=== PATIENT | male | born 1965 | race Caucasian/White ===

== ENCOUNTER 2017-04-27 09:42 | Observation (INO) | payer MEDICARE, MEDICAID ==
[~2017-04-27] VITALS: Ht 177.8 cm; Wt 99.8 kg
[~2017-04-27 09:42] MED LIST: CARV25TA47 PO; CLON1TAB PO; DABI150C PO; HYDR-519 PO; LISINOPRIL PO; PRADAXA PO; TEMA30CA5 PO
[2017-04-27] MEDS ORDERED: MORPHINE SULFATE 4 MG/ML CPJ (NOT FOR IM USE) IV STA (09:57)
[2017-04-27] MEDS ORDERED: ONDANSETRON HCL 4MG/2ML VIAL IV STA (09:57)
[2017-04-27 10:17] LABS: BASOPHILS % 0.6 % (0.0-2.0); EOSINOPHILS % 1.1 % (0.0-5.0); HEMATOCRIT. 44.2 % (42.0-52.0); HEMOGLOBIN. 15.5 g/dL (14.0-18.0); LYMPHOCYTES % 28.3 % (20.0-50.0); MEAN CORPUSCULAR HEMOGLOBIN 33.8 pg (28.0-32.0); MEAN CORPUSCULAR VOLUME 96.1 fL (80.0-94.0); MEAN PLATELET VOLUME 8.3 fl (7.4-10.4); MONOCYTES % 10.1 % (2.0-8.0); NEUTROPHILS % 59.9 % (40.0-76.0); PLATELET 168 x1000/uL (130-400); RED CELL DISTRIBUTION WIDTH 14.2 % (11.6-14.6)
[2017-04-27 10:26] LABS: PARTIAL THROMBOPLASTIN TIME 27.2 sec (24.0-34.0); PROTHROMBIN TIME 10.7 sec
[2017-04-27 10:34] LABS: CARBON DIOXIDE 26 mEq/L (21-32); CHLORIDE 108 mEq/L (98-107); TROPONIN I < 0.02 ng/mL (0.00-0.04)
[2017-04-27 10:52] LABS: CLARITY URINE CLEAR (CLEAR); COLOR URINE DARK YELLOW (YELLOW); GLUCOSE URINE NEGATIVE (NEGATIVE); KETONES URINE TRACE (NEGATIVE); LEUKOCYTE ESTERASE URINE NEGATIVE (NEGATIVE); NITRITE URINE NEGATIVE (NEGATIVE); OCCULT BLOOD URINE NEGATIVE (NEGATIVE); PH URINE 5.5 (4.5-8.0); PROTEIN URINE 2+ (NEGATIVE); SPECIFIC GRAVITY URINE 1.025 (1.005-1.030)
[2017-04-27 12:30] VITALS: BP_SYST 154; BP_SYST 156; BP_DIAS 116
[2017-04-27] MEDS ORDERED: ACETAMINOPHEN 650MG/20.3ML UDC PO PRN (14:15)
[2017-04-27] MEDS ORDERED: DIGO250T81 PO (14:18)
[2017-04-27] MEDS ORDERED: RIVA20TA PO (14:18)
[2017-04-27] MEDS ORDERED: COR6 PO (14:18)
[2017-04-27 16:01] VITALS: BP 120/92
[2017-04-27] MEDS ORDERED: RIVAROXABAN 20 MG TABLET PO SCH (17:00)
[2017-04-27] MEDS ORDERED: DIGOXIN 250MCG TABLET PO SCH (18:00)
[2017-04-27 18:18] LABS: CREATINE KINASE 70 IU/L (39-308); CREATINE KINASE MB FRACTION 1.5 ng/mL (0.5-3.6); TROPONIN I < 0.02 ng/mL (0.00-0.04)
[2017-04-27 20:00] VITALS: BP 122/86
[2017-04-27] MEDS ORDERED: FAMOTIDINE 20MG TABLET PO SCH (21:00)
[2017-04-27] MEDS ORDERED: CARVEDILOL 6.25 MG TABLET PO SCH (21:00)
== END 2017-04-27 20:20 | disposition left against medical advice (07) ==
LOC: ER 10:13 → 8WST 11:22 → INTOOBSV 11:22 → EDBEDREQ 11:24 → ENRESERV 11:28
PROVIDERS: ADMIT Ophthalmology; ATTEND Ophthalmology
DX: R07.89 Other chest pain (principal); I42.9 Cardiomyopathy, unspecified; I51.7 Cardiomegaly; I48.2 Chronic atrial fibrillation; I50.9 Heart failure, unspecified; F41.9 Anxiety disorder, unspecified; Z95.0 Presence of cardiac pacemaker
CPT/HCPCS: 36415; 71010; 80053; 80162; 81001; 82550; 82553; 83880; 84484; 85025; 85610; 85730; 87040; 87086; 93005; 96374; 96375; 99285; G0378; J2270; J2405

== ENCOUNTER 2017-10-21 22:16 | Emergency (ER) | payer MEDICARE, MEDICAID ==
[~2017-10-21] VITALS: Ht 175.3 cm; Wt 90.0 kg
[~2017-10-21 22:16] MED LIST changes: -CARV25TA47 PO; +COR6 PO; -DABI150C PO; +DIGO250T81 PO; -LISINOPRIL PO; -PRADAXA PO; +RIVA20TA PO; -TEMA30CA5 PO
[2017-10-21] MEDS ORDERED: ACETAMINOPHEN WITH CODEINE 300/30MG TABLET PO ONE (23:30)
[2017-10-21] MEDS ORDERED: LORAZEPAM 1MG TABLET PO ONE (23:30)
[2017-10-22 00:08] LABS: BASOPHILS % 0.6 % (0.0-2.0); EOSINOPHILS % 3.1 % (0.0-5.0); HEMATOCRIT. 41.4 % (42.0-52.0); HEMOGLOBIN. 14.5 g/dL (14.0-18.0); LYMPHOCYTES % 38.7 % (20.0-50.0); MEAN CORPUSCULAR HEMOGLOBIN 34.9 pg (28.0-32.0); MEAN CORPUSCULAR VOLUME 99.7 fL (80.0-94.0); MEAN PLATELET VOLUME 8.7 fl (7.4-10.4); MONOCYTES % 14.6 % (2.0-8.0); PLATELET 165 x1000/uL (130-400); RED BLOOD CELL COUNT 4.15 mill/uL (4.7-6.1); RED CELL DISTRIBUTION WIDTH 12.9 % (11.6-14.6)
[2017-10-22 00:22] LABS: CARBON DIOXIDE 25 mEq/L (21-32); CHLORIDE 108 mEq/L (98-107); ETHANOL BLOOD < 10 mg/dL; TROPONIN I < 0.02 ng/mL (0.00-0.04)
[2017-10-23] MEDS ORDERED: ACETAMINOPHEN 325MG TABLET PO STA (11:40)
[2017-10-23] MEDS ORDERED: DIGOXIN 250MCG TABLET PO SCH (18:00)
[2017-10-23] MEDS: CARVEDILOL 6.25 MG TABLET PO SCH (18:13)
[2017-10-23] MEDS: CLONAZEPAM 1MG TABLET PO SCH (21:17)
[2017-10-23] MEDS ORDERED: RIVAROXABAN 20 MG TABLET PO SCH (22:00)
[2017-10-24] MEDS: CLONAZEPAM 1MG TABLET PO SCH ×2 (05:48→13:41)
[2017-10-24] MEDS: CARVEDILOL 6.25 MG TABLET PO SCH (09:00)
[2017-10-24 14:15] VITALS: BP 119/87
== END 2017-10-24 14:32 ==
LOC: ER 22:36
DX: R07.2 Precordial pain (principal); I11.0 Hypertensive heart disease with heart failure; I50.9 Heart failure, unspecified; F41.9 Anxiety disorder, unspecified; I48.91 Unspecified atrial fibrillation; Z95.0 Presence of cardiac pacemaker; Z88.1 Allergy status to other antibiotic agents; Z88.6 Allergy status to analgesic agent; Z88.8 Allergy status to other drugs, medicaments and biological substances
CPT/HCPCS: 36415; 71010; 80053; 80307; 80329; 83880; 84484; 85025; 99285; G0482

== ENCOUNTER 2017-12-27 19:36 | Emergency (ER) | payer MEDICARE, MEDICAID ==
[~2017-12-27] VITALS: Ht 182.9 cm; Wt 100.0 kg
[~2017-12-27 19:36] MED LIST changes: +CARV6.2548 PO; +CLON2TAB PO; +DIGO125T82 PO
[2017-12-27] MEDS ORDERED: ACETAMINOPHEN 325MG TABLET PO STA (19:50)
[2017-12-27] MEDS ORDERED: ASPIRIN 81MG TABLET PO ONE (20:00)
[2017-12-27] MEDS ORDERED: NITROGLYCERIN OINT 1GM/INCH UDPKT TD ONE (20:00)
[2017-12-27 20:31] LABS: HEMATOCRIT. 50.9 % (42.0-52.0); HEMOGLOBIN. 17.4 g/dL (14.0-18.0); MEAN CORPUSCULAR HEMOGLOBIN 33.7 pg (28.0-32.0); MEAN CORPUSCULAR VOLUME 98.7 fL (80.0-94.0); MEAN PLATELET VOLUME 8.1 fl (7.4-10.4); PLATELET 175 x1000/uL (130-400); RED BLOOD CELL COUNT 5.15 mill/uL (4.7-6.1); RED CELL DISTRIBUTION WIDTH 13.3 % (11.6-14.6)
[2017-12-27 20:34] LABS: INR 1.1; PROTHROMBIN TIME 11.4 sec (9.4-11.6)
[2017-12-27 20:49] LABS: PLATELET ESTIMATE NORMAL
[2017-12-27 20:50] LABS: CHLORIDE 107 mEq/L (98-107); ETHANOL BLOOD 219 mg/dL
[2017-12-27 20:51] LABS: TROPONIN I < 0.02 ng/mL (0.00-0.04)
[2017-12-27 21:03] LABS: DIGOXIN 0.3 ng/mL (0.9-2.0)
[2017-12-27] MEDS ORDERED: DICYCLOMINE HCL 20MG TABLET PO ONE (21:14)
[2017-12-27] MEDS ORDERED: DIGOXIN 250MCG TABLET PO ONE (21:15)
[2017-12-28] VITALS: BP 130/89
== END 2017-12-28 00:10 | disposition home or self-care (01) ==
LOC: ER 19:40 → CANBEDREQ 12-28 00:33
DX: T51.8X1A Toxic effect of other alcohols, accidental (unintentional), initial encounter (principal); R07.2 Precordial pain; K21.9 Gastro-esophageal reflux disease without esophagitis; I48.91 Unspecified atrial fibrillation; I25.2 Old myocardial infarction; Y92.89 Other specified places as the place of occurrence of the external cause; Z88.6 Allergy status to analgesic agent; Z88.8 Allergy status to other drugs, medicaments and biological substances
CPT/HCPCS: 36415; 71045; 74176; 80053; 80162; 83690; 83880; 84484; 85025; 85610; 93005; 99285; G0482

== ENCOUNTER 2018-04-08 15:51 | Emergency (ER) | payer MEDICARE, MEDICAID ==
[~2018-04-08] VITALS: Ht 177.8 cm; Wt 91.0 kg
[~2018-04-08 15:51] MED LIST changes: -CARV6.2548 PO; -CLON1TAB PO; -DIGO250T81 PO
[2018-04-08 18:19] LABS: CLARITY URINE CLEAR (CLEAR); COLOR URINE DARK YELLOW (YELLOW); KETONES URINE TRACE (NEGATIVE); LEUKOCYTE ESTERASE URINE TRACE (NEGATIVE); NITRITE URINE NEGATIVE (NEGATIVE); OCCULT BLOOD URINE NEGATIVE (NEGATIVE); PH URINE 6.5 (4.5-8.0); PROTEIN URINE 1+ (NEGATIVE); SPECIFIC GRAVITY URINE 1.019 (1.005-1.030)
[2018-04-08 18:28] LABS: BASOPHILS % 0.6 % (0.0-2.0); EOSINOPHILS % 1.7 % (0.0-5.0); HEMATOCRIT. 42.3 % (42.0-52.0); LYMPHOCYTES % 23.8 % (20.0-50.0); MEAN CORPUSCULAR HEMOGLOBIN 34.6 pg (28.0-32.0); MEAN CORPUSCULAR VOLUME 97.3 fL (80.0-94.0); MEAN PLATELET VOLUME 8.6 fl (7.4-10.4); MONOCYTES % 10.3 % (2.0-8.0); NEUTROPHILS % 63.6 % (40.0-76.0); PLATELET 195 x1000/uL (130-400); RED BLOOD CELL COUNT 4.34 mill/uL (4.7-6.1); RED CELL DISTRIBUTION WIDTH 13.5 % (11.6-14.6)
[2018-04-08 18:28] LABS: *AMPHETAMINES SCREEN URINE NEGATIVE (NEGATIVE); *BARBITURATES SCREEN URINE NEGATIVE (NEGATIVE); *BENZODIAZEPINES SCREEN URINE NEGATIVE (NEGATIVE); *COCAINE SCREEN URINE NEGATIVE (NEGATIVE)
[2018-04-08 18:29] LABS: CANNABINOID URINE SCREEN PRESUMTIVE POSITIVE (NEGATIVE); METHADONE URINE SCREEN NEGATIVE (NEGATIVE); OPIATES URINE SCREEN PRESUMTIVE POSITIVE (NEGATIVE); PHENCYCLIDINE URINE SCREEN NEGATIVE (NEGATIVE)
[2018-04-08 18:30] LABS: CHLORIDE 104 mEq/L (98-107)
[2018-04-08 18:34] LABS: ETHANOL BLOOD < 10 mg/dL
[2018-04-08] MEDS ORDERED: DEXAMETHASONE 10 MG/ML VIAL IM STA (22:15)
[2018-04-08] MEDS ORDERED: ALBUTEROL (0.083%) 2.5MG/3ML NEB HHN STA (22:15)
[2018-04-08] MEDS ORDERED: IPRATROPIUM BROMIDE (0.02%) 0.5MG/2.5ML NEB HHN STA (22:15)
[2018-04-09] MEDS ORDERED: LORAZEPAM 1MG TABLET PO ONE ×3 (04:30→12:45)
[2018-04-09] MEDS ORDERED: RIVAROXABAN 10 MG TABLET PO STA (05:11)
[2018-04-09] MEDS ORDERED: DIGOXIN 125MCG TABLET PO ONE (05:15)
[2018-04-09] MEDS ORDERED: CARVEDILOL 6.25 MG TABLET PO ONE (05:15)
[2018-04-09] MEDS ORDERED: CLONAZEPAM 1MG TABLET PO ONE (15:30)
[2018-04-09 20:13] VITALS: BP 129/94
== END 2018-04-09 20:38 ==
LOC: ER 22:02
DX: R45.851 Suicidal ideations (principal); F41.9 Anxiety disorder, unspecified; J45.909 Unspecified asthma, uncomplicated; I50.9 Heart failure, unspecified; Z88.6 Allergy status to analgesic agent; I48.91 Unspecified atrial fibrillation; Z95.0 Presence of cardiac pacemaker; Z79.01 Long term (current) use of anticoagulants
CPT/HCPCS: 36415; 80053; 80305; 80307; 80329; 81003; 85025; 96372; 99285; G0482; J1100; J7611

== ENCOUNTER 2018-05-03 11:09 | Emergency (ER) | payer MEDICARE, MEDICAID ==
[~2018-05-03] VITALS: Ht 177.8 cm; Wt 90.0 kg
[2018-05-03] MEDS ORDERED: MORPHINE SULFATE 2 MG/ML CPJ (NOT FOR IM USE) IV ONE (12:15)
[2018-05-03] MEDS ORDERED: SODIUM CHLORIDE 0.9% 500 ML IV ONE (12:30)
[2018-05-03] MEDS ORDERED: HYDROCODONE/APAP 7.5/325MG 1 TAB TABLET PO ONE (13:30)
[2018-05-03 15:49] LABS: CLARITY URINE CLEAR (CLEAR); COLOR URINE DARK YELLOW (YELLOW); KETONES URINE NEGATIVE (NEGATIVE); LEUKOCYTE ESTERASE URINE 1+ (NEGATIVE); NITRITE URINE NEGATIVE (NEGATIVE); OCCULT BLOOD URINE NEGATIVE (NEGATIVE); PH URINE 6.5 (4.5-8.0); PROTEIN URINE TRACE (NEGATIVE); SPECIFIC GRAVITY URINE 1.023 (1.005-1.030)
[2018-05-03 16:11] LABS: *AMPHETAMINES SCREEN URINE NEGATIVE (NEGATIVE); *BARBITURATES SCREEN URINE NEGATIVE (NEGATIVE); *BENZODIAZEPINES SCREEN URINE NEGATIVE (NEGATIVE)
[2018-05-03 16:12] LABS: *COCAINE SCREEN URINE PRESUMTIVE POSITIVE (NEGATIVE); CANNABINOID URINE SCREEN PRESUMTIVE POSITIVE (NEGATIVE); METHADONE URINE SCREEN NEGATIVE (NEGATIVE); OPIATES URINE SCREEN PRESUMTIVE POSITIVE (NEGATIVE); PHENCYCLIDINE URINE SCREEN NEGATIVE (NEGATIVE)
[2018-05-03 17:33] VITALS: BP 131/94
== END 2018-05-03 18:38 | disposition home or self-care (01) ==
LOC: ER 11:18
DX: M54.40 Lumbago with sciatica, unspecified side (principal); M79.604 Pain in right leg; E86.0 Dehydration; M50.322 Other cervical disc degeneration at C5-C6 level; M50.323 Other cervical disc degeneration at C6-C7 level; M12.88 Other specific arthropathies, not elsewhere classified, other specified site; M47.894 Other spondylosis, thoracic region; M47.898 Other spondylosis, sacral and sacrococcygeal region; I48.91 Unspecified atrial fibrillation; H57.8 Other specified disorders of eye and adnexa; I50.9 Heart failure, unspecified; F41.9 Anxiety disorder, unspecified; F32.9 Major depressive disorder, single episode, unspecified; N17.0 Acute kidney failure with tubular necrosis; F12.10 Cannabis abuse, uncomplicated; F14.10 Cocaine abuse, uncomplicated; F11.10 Opioid abuse, uncomplicated; F17.200 Nicotine dependence, unspecified, uncomplicated; Z88.6 Allergy status to analgesic agent; Z88.1 Allergy status to other antibiotic agents; Z88.8 Allergy status to other drugs, medicaments and biological substances; W01.0XXA Fall on same level from slipping, tripping and stumbling without subsequent striking against object, initial encounter; Y93.01 Activity, walking, marching and hiking; Y92.89 Other specified places as the place of occurrence of the external cause; Y99.8 Other external cause status
CPT/HCPCS: 72040; 72070; 72100; 73522; 80305; 81003; 99285; C1893; J7030; J7040; J2270

== ENCOUNTER 2019-12-11 20:35 | Emergency (ER) | payer MEDICARE, MEDICAID ==
[~2019-12-11] VITALS: Ht 177.8 cm; Wt 98.0 kg
[~2019-12-11 20:35] MED LIST changes: +DIGO125T PO; -DIGO125T82 PO
[2019-12-11 22:55] LABS: BASOPHILS % 1.1 % (0.0-2.0); EOSINOPHILS % 1.9 % (0.0-5.0); HEMATOCRIT. 42.1 % (42.0-52.0); HEMOGLOBIN. 14.8 g/dL (14.0-18.0); LYMPHOCYTES % 26.2 % (20.0-50.0); MEAN CORPUSCULAR HEMOGLOBIN 35.7 pg (28.0-32.0); MEAN CORPUSCULAR VOLUME 101.3 fL (80.0-94.0); MEAN PLATELET VOLUME 8.8 fl (7.4-10.4); MONOCYTES % 13.3 % (2.0-8.0); NEUTROPHILS % 57.5 % (40.0-76.0); PLATELET 132 x1000/uL (130-400); RED BLOOD CELL COUNT 4.15 mill/uL (4.7-6.1); RED CELL DISTRIBUTION WIDTH 13.6 % (11.6-14.6)
[2019-12-11 22:57] LABS: CHLORIDE 105 mEq/L (98-107)
[2019-12-11 23:01] LABS: ETHANOL BLOOD 12 mg/dL
[2019-12-11 23:07] LABS: CLARITY URINE CLEAR (CLEAR); COLOR URINE YELLOW (YELLOW); KETONES URINE NEGATIVE (NEGATIVE); LEUKOCYTE ESTERASE URINE NEGATIVE (NEGATIVE); NITRITE URINE NEGATIVE (NEGATIVE); OCCULT BLOOD URINE NEGATIVE (NEGATIVE); PH URINE 5.5 (4.5-8.0); PROTEIN URINE NEGATIVE (NEGATIVE); SPECIFIC GRAVITY URINE 1.012 (1.005-1.030); UROBILINOGEN URINE 0.2 E.U./dL (0.2-1.0)
[2019-12-11 23:23] LABS: *AMPHETAMINES SCREEN URINE NEGATIVE (NEGATIVE); *BARBITURATES SCREEN URINE NEGATIVE (NEGATIVE); *BENZODIAZEPINES SCREEN URINE PRESUMTIVE POSITIVE (NEGATIVE); *COCAINE SCREEN URINE NEGATIVE (NEGATIVE)
[2019-12-11 23:25] LABS: CANNABINOID URINE SCREEN PRESUMTIVE POSITIVE (NEGATIVE); METHADONE URINE SCREEN NEGATIVE (NEGATIVE); OPIATES URINE SCREEN NEGATIVE (NEGATIVE); PHENCYCLIDINE URINE SCREEN NEGATIVE (NEGATIVE)
[2019-12-12] MEDS ORDERED: LORAZEPAM 1MG TABLET PO ONE ×2 (03:30→09:45)
[2019-12-12] MEDS ORDERED: ACETAMINOPHEN 325MG TABLET PO ONE (08:45)
[2019-12-12 12:19] VITALS: BP 113/67
== END 2019-12-12 12:46 ==
LOC: ER 20:35
DX: R45.851 Suicidal ideations (principal); R45.1 Restlessness and agitation; G89.29 Other chronic pain; M54.9 Dorsalgia, unspecified; I50.9 Heart failure, unspecified; F12.10 Cannabis abuse, uncomplicated; F13.10 Sedative, hypnotic or anxiolytic abuse, uncomplicated; I48.91 Unspecified atrial fibrillation; Z95.0 Presence of cardiac pacemaker; Z98.890 Other specified postprocedural states; Z88.6 Allergy status to analgesic agent; Z88.1 Allergy status to other antibiotic agents
CPT/HCPCS: 36415; 80053; 80305; 80320; 81003; 85025; 99285; G0480

== ENCOUNTER 2020-03-26 10:00 | Inpatient (IN) | payer MEDICARE, MEDICAID ==
[~2020-03-26] VITALS: Ht 177.8 cm; Wt 98.6 kg
[2020-03-26] MEDS ORDERED: MORPHINE SULFATE 4 MG/ML CPJ (NOT FOR IM USE) IV STA (10:24)
[2020-03-26] MEDS ORDERED: ONDANSETRON HCL 4MG/2ML INJ IV STA (10:24)
[2020-03-26] MEDS ORDERED: DIAZEPAM 5 MG/ML 2ML CPJ IV ONE (11:15)
[2020-03-26 11:27] LABS: EOSINOPHILS % 2.4 % (0.0-5.0); HEMOGLOBIN. 15.4 g/dL (14.0-18.0); LYMPHOCYTES % 23.7 % (20.0-50.0); MEAN CORPUSCULAR HEMOGLOBIN 33.5 pg (28.0-32.0); MEAN CORPUSCULAR VOLUME 97.6 fL (80.0-94.0); MEAN PLATELET VOLUME 9.2 fl (7.4-10.4); MONOCYTES % 11.7 % (2.0-8.0); NEUTROPHILS % 61.2 % (40.0-76.0); PLATELET 123 x1000/uL (130-400); RED BLOOD CELL COUNT 4.61 mill/uL (4.7-6.1); RED CELL DISTRIBUTION WIDTH 13.2 % (11.6-14.6)
[2020-03-26 11:33] LABS: INR 0.9; PROTHROMBIN TIME 10.3 sec (9.6-11.0)
[2020-03-26 11:36] LABS: CHLORIDE 103 mEq/L (98-107)
[2020-03-26] MEDS ORDERED: GUAIFENESIN 200MG/10ML SUGAR FREE UDC PO PRN (12:45)
[2020-03-26] MEDS ORDERED: CLONIDINE 0.1MG TABLET PO PRN (12:45)
[2020-03-26] MEDS ORDERED: NA PHOS,M-B/NA PHOS,DI-BA ENEMA 118ML PR PRN (12:45)
[2020-03-26] MEDS ORDERED: DOCUSATE SODIUM 100MG CAPSULE PO PRN (12:45)
[2020-03-26] MEDS ORDERED: ONDANSETRON HCL 4MG/2ML INJ IV PRN (12:45)
[2020-03-26] MEDS ORDERED: MAGNESIUM/ALUMINUM HYDROXIDE/SIMETHICONE 30ML UDC PO PRN (12:45)
[2020-03-26] MEDS ORDERED: IPRATROPIUM/ALBUTEROL 0.5-3(2.5)MG/3ML NEB NEB PRN (12:45)
[2020-03-26 12:48] LABS: *AMPHETAMINES SCREEN URINE NEGATIVE (NEGATIVE); *BARBITURATES SCREEN URINE NEGATIVE (NEGATIVE); *BENZODIAZEPINES SCREEN URINE PRESUMTIVE POSITIVE (NEGATIVE); *COCAINE SCREEN URINE NEGATIVE (NEGATIVE)
[2020-03-26 12:49] LABS: CANNABINOID URINE SCREEN NEGATIVE (NEGATIVE); METHADONE URINE SCREEN NEGATIVE (NEGATIVE); OPIATES URINE SCREEN PRESUMTIVE POSITIVE (NEGATIVE); PHENCYCLIDINE URINE SCREEN NEGATIVE (NEGATIVE)
[2020-03-26] MEDS: LORAZEPAM 2MG/ML CPJ IV PRN ×3 (13:07→21:54)
[2020-03-26] MEDS: MORPHINE SULFATE 2 MG/ML CPJ (NOT FOR IM USE) IV PRN ×2 (14:16→21:01)
[2020-03-26] MEDS: CARVEDILOL 6.25 MG TABLET PO SCH (18:31)
[2020-03-26] MEDS: RIVAROXABAN 20 MG TABLET PO SCH (18:31)
[2020-03-27 00:28] LABS: CHLORIDE 104 mEq/L (98-107)
[2020-03-27] MEDS: MORPHINE SULFATE 2 MG/ML CPJ (NOT FOR IM USE) IV PRN ×3 (01:14→21:34)
[2020-03-27] MEDS: LORAZEPAM 2MG/ML CPJ IV PRN ×4 (04:44→21:34)
[2020-03-27 04:50] LABS: BASOPHILS % 0.5 % (0.0-2.0); EOSINOPHILS % 2.3 % (0.0-5.0); HEMATOCRIT. 44.8 % (42.0-52.0); HEMOGLOBIN. 15.5 g/dL (14.0-18.0); LYMPHOCYTES % 24.5 % (20.0-50.0); MEAN CORPUSCULAR HEMOGLOBIN 33.9 pg (28.0-32.0); MEAN CORPUSCULAR VOLUME 98.2 fL (80.0-94.0); MEAN PLATELET VOLUME 8.7 fl (7.4-10.4); MONOCYTES % 13.4 % (2.0-8.0); NEUTROPHILS % 59.3 % (40.0-76.0); PLATELET 113 x1000/uL (130-400); RED BLOOD CELL COUNT 4.57 mill/uL (4.7-6.1); RED CELL DISTRIBUTION WIDTH 13.3 % (11.6-14.6)
[2020-03-27 04:58] LABS: CHLORIDE 104 mEq/L (98-107)
[2020-03-27 05:04] LABS: LDL CHOLESTEROL 64 mg/dL (5-100)
[2020-03-27 05:06] LABS: HDL CHOLESTEROL 74 mg/dL (40-59); T4 FREE 1.22 ng/dL (0.76-1.46)
[2020-03-27] MEDS: ASPIRIN 81MG EC TABLET PO SCH (08:47)
[2020-03-27] MEDS: CARVEDILOL 6.25 MG TABLET PO SCH ×2 (10:30→21:00)
[2020-03-27] MEDS ORDERED: CARVEDILOL 6.25 MG TABLET PO SCH (10:45)
[2020-03-27] MEDS: LOSARTAN POTASSIUM 25 MG TABLET PO SCH (12:00)
[2020-03-27] MEDS: RIVAROXABAN 20 MG TABLET PO SCH (17:41)
[2020-03-27] MEDS: DIPHENHYDRAMINE 50MG/ML VIAL IV PRN (18:28)
[2020-03-28] MEDS: LORAZEPAM 2MG/ML CPJ IV PRN ×3 (02:09→21:54)
[2020-03-28] MEDS: MORPHINE SULFATE 2 MG/ML CPJ (NOT FOR IM USE) IV PRN ×4 (02:10→18:56)
[2020-03-28 03:36] VITALS: BP 109/78
[2020-03-28 04:00] VITALS: BP 120/92
[2020-03-28 07:46] VITALS: BP 108/63
[2020-03-28] MEDS: LOSARTAN POTASSIUM 25 MG TABLET PO SCH (09:00)
[2020-03-28] MEDS: CARVEDILOL 6.25 MG TABLET PO SCH ×2 (09:00→21:00)
[2020-03-28] MEDS: ASPIRIN 81MG EC TABLET PO SCH (10:30)
[2020-03-28 11:25] VITALS: BP 124/83
[2020-03-28 16:00] VITALS: BP 122/76
[2020-03-28] MEDS: RIVAROXABAN 20 MG TABLET PO SCH (16:04)
[2020-03-28 20:00] VITALS: BP 109/73
[2020-03-29] VITALS (7 sets, daily range): BP systolic 106–128; BP diastolic 75–91
[2020-03-29] MEDS: MORPHINE SULFATE 2 MG/ML CPJ (NOT FOR IM USE) IV PRN ×5 (00:09→20:24)
[2020-03-29] MEDS: DIPHENHYDRAMINE 50MG/ML VIAL IV PRN ×2 (02:07→09:08)
[2020-03-29] MEDS: LORAZEPAM 2MG/ML CPJ IV PRN ×3 (06:20→18:19)
[2020-03-29 07:28] LABS: BASOPHILS % 0.5 % (0.0-2.0); EOSINOPHILS % 3.6 % (0.0-5.0); HEMATOCRIT. 41.7 % (42.0-52.0); HEMOGLOBIN. 14.2 g/dL (14.0-18.0); LYMPHOCYTES % 26.1 % (20.0-50.0); MEAN CORPUSCULAR HEMOGLOBIN 33.9 pg (28.0-32.0); MEAN CORPUSCULAR VOLUME 99.5 fL (80.0-94.0); MEAN PLATELET VOLUME 9.9 fl (7.4-10.4); NEUTROPHILS % 55.8 % (40.0-76.0); PLATELET 91 x1000/uL (130-400); RED BLOOD CELL COUNT 4.19 mill/uL (4.7-6.1); RED CELL DISTRIBUTION WIDTH 13.7 % (11.6-14.6)
[2020-03-29 09:08] LABS: CHLORIDE 103 mEq/L (98-107)
[2020-03-29] MEDS: CARVEDILOL 6.25 MG TABLET PO SCH (09:08)
[2020-03-29] MEDS: LOSARTAN POTASSIUM 25 MG TABLET PO SCH (09:08)
[2020-03-29] MEDS: ASPIRIN 81MG EC TABLET PO SCH (09:09)
[2020-03-29] MEDS: RIVAROXABAN 20 MG TABLET PO SCH (18:19)
== END 2020-03-29 21:00 | DRG 303 ==
LOC: ER 10:00 → 5WST 12:32 → EDBEDREQ 12:35 → ENRESERV 03-27 22:28 → CANRESERV 03-27 22:28 → ENRESERV 03-28 01:16
PROVIDERS: ADMIT Internal Medicine; ATTEND Internal Medicine
DX: I25.10 Atherosclerotic heart disease of native coronary artery without angina pectoris (principal); I50.22 Chronic systolic (congestive) heart failure; I48.20 Chronic atrial fibrillation, unspecified; R45.851 Suicidal ideations; I42.0 Dilated cardiomyopathy; F41.0 Panic disorder [episodic paroxysmal anxiety]; D69.6 Thrombocytopenia, unspecified; F41.1 Generalized anxiety disorder; R74.0 Nonspecific elevation of levels of transaminase and lactic acid dehydrogenase [LDH]; F12.10 Cannabis abuse, uncomplicated; F10.10 Alcohol abuse, uncomplicated; Z60.2 Problems related to living alone; I71.2 Thoracic aortic aneurysm, without rupture; Z20.828 Contact with and (suspected) exposure to other viral communicable diseases; F43.10 Post-traumatic stress disorder, unspecified; F41.8 Other specified anxiety disorders; G89.4 Chronic pain syndrome; I11.0 Hypertensive heart disease with heart failure; K21.9 Gastro-esophageal reflux disease without esophagitis; Z86.711 Personal history of pulmonary embolism; Z91.14 Patient's other noncompliance with medication regimen; Z95.810 Presence of automatic (implantable) cardiac defibrillator; Z79.01 Long term (current) use of anticoagulants; Z91.19 Patient's noncompliance with other medical treatment and regimen; Z79.899 Other long term (current) drug therapy; Z88.1 Allergy status to other antibiotic agents; Z88.8 Allergy status to other drugs, medicaments and biological substances; I25.2 Old myocardial infarction
CPT/HCPCS: 36415; 71045; 80048; 80053; 80305; 83880; 84484; 85025; 93005; 93306; 96374; 96375; 96376; 99291; J1200; J2060; J2270; J2405; U0003

== ENCOUNTER 2021-07-06 23:14 | Emergency (ER) | payer MEDICARE, MEDICAID ==
[~2021-07-06] VITALS: Ht 172.7 cm; Wt 95.0 kg
[2021-07-06 23:20] VITALS: BP 109/75
[2021-07-07] MEDS ORDERED: ACETAMINOPHEN 500MG TABLET PO ONE (00:30)
== END 2021-07-07 00:39 | disposition home or self-care (01) ==
LOC: ER 23:36
DX: G89.29 Other chronic pain (principal); R07.89 Other chest pain; F41.1 Generalized anxiety disorder; F43.0 Acute stress reaction; I48.91 Unspecified atrial fibrillation; I48.92 Unspecified atrial flutter; I25.10 Atherosclerotic heart disease of native coronary artery without angina pectoris; I50.9 Heart failure, unspecified; Z95.0 Presence of cardiac pacemaker; Z79.899 Other long term (current) drug therapy
CPT/HCPCS: 93005; 99283

== ENCOUNTER 2023-11-21 14:50 | Emergency (ER) | payer MEDICARE, MEDICAID ==
[~2023-11-21] VITALS: Ht 167.6 cm; Wt 78.0 kg
[~2023-11-21 14:50] MED LIST changes: +BUPR2TAB SL; +CARV6.2548 MT; +CLON1TAB12 MT; -CLON2TAB PO; -COR6 PO; -HYDR-519 PO; +LISI-186 MT; +MELA5TAB21 MT; +TOPUD MT
[2023-11-21 14:53] VITALS: TEMP 97.6
[2023-11-21] MEDS ORDERED: IPRATROPIUM BROMIDE (0.02%) 0.5MG/2.5ML NEB HHN STA (16:06)
[2023-11-21] MEDS ORDERED: PREDNISONE 20MG TABLET PO STA (16:06)
[2023-11-21] MEDS ORDERED: IBUPROFEN 600MG TABLET PO STA (16:22)
[2023-11-21] MEDS ORDERED: NITROGLYCERIN 0.4MG TABLET SL SL PRN (17:30)
[2023-11-21 17:45] VITALS: PULSE 59; RESP 20; O2SAT 100
[2023-11-21] MEDS: ALBUTEROL (0.083%) 2.5MG/3ML NEB HHN SCH ×3 (17:45→18:45)
[2023-11-21 17:52] LABS: BASOPHILS % 0.6 % (0.0-2.0); EOSINOPHILS % 1.5 % (0.0-5.0); HEMATOCRIT. 44.6 % (42.0-52.0); LYMPHOCYTES % 31.7 % (20.0-50.0); MEAN CORPUSCULAR HEMOGLOBIN 33.5 pg (28.0-32.0); MEAN CORPUSCULAR HGB CONC 33.7 g/dL (31.0-37.0); MEAN CORPUSCULAR VOLUME 99.4 fL (80.0-94.0); MEAN PLATELET VOLUME 8.8 fl (7.4-10.4); MONOCYTES % 11.7 % (2.0-8.0); NEUTROPHILS % 54.5 % (40.0-76.0); PLATELET 137 x1000/uL (130-400); RED BLOOD CELL COUNT 4.48 mill/uL (4.7-6.1); RED CELL DISTRIBUTION WIDTH 13.8 % (11.6-14.6); WHITE BLOOD COUNT 8.2 x1000/uL (4.5-11.0)
[2023-11-21] MEDS ORDERED: MORPHINE SULFATE 10MG/5ML ORAL SOLN UDC PO PRN (18:00)
[2023-11-21 18:08] LABS: ALANINE AMINOTRANSFERASE 38 IU/L (10-49); ALBUMIN 3.8 g/dL (3.2-4.8); ASPARTATE AMINOTRANSFERASE 39 IU/L (<34); BILIRUBIN TOTAL 0.6 mg/dL (0.1-1.0); CALCIUM 9.2 mg/dL (8.7-10.4); CARBON DIOXIDE 23 mEq/L (21-32); CHLORIDE 110 mEq/L (98-107); CREATININE 0.6 mg/dL (0.6-1.3); GLUCOSE 88 mg/dL (70-105); POTASSIUM 3.9 mEq/L (3.5-5.1); PROTEIN TOTAL 7.1 g/dL (6.0-8.3); SODIUM 141 mEq/L (136-145); UREA NITROGEN BLOOD 10 mg/dL (9-23)
[2023-11-21 18:16] VITALS: PULSE 54; RESP 20; O2SAT 100
[2023-11-21 18:20] LABS: TROPONIN I HIGH SENSITIVITY < 4 ng/L (3.0-53)
[2023-11-21 18:45] VITALS: PULSE 50; RESP 20; O2SAT 100
[2023-11-21 19:04] VITALS: BP 110/80; PULSE 64; RESP 18
== END 2023-11-21 22:00 | disposition home or self-care (01) ==
LOC: ER 14:50
DX: G89.29 Other chronic pain (principal); M54.9 Dorsalgia, unspecified; R07.9 Chest pain, unspecified; R06.02 Shortness of breath; I25.2 Old myocardial infarction; I11.0 Hypertensive heart disease with heart failure; I50.9 Heart failure, unspecified; Z98.890 Other specified postprocedural states; Z88.6 Allergy status to analgesic agent; Z88.5 Allergy status to narcotic agent; Z88.8 Allergy status to other drugs, medicaments and biological substances
CPT/HCPCS: 36415; 71045; 72040; 72070; 72100; 80053; 83880; 84484; 85025; 93005; 94640; 99285

== ENCOUNTER 2024-07-12 18:04 | Emergency (ER) | payer MEDICARE, MEDICAID ==
[~2024-07-12] VITALS: Ht 172.7 cm; Wt 81.0 kg
[2024-07-12 18:10] VITALS: O2SAT 99
[2024-07-12 18:25] VITALS: BP 130/82; PULSE 65; RESP 18; TEMP 98.2; O2SAT 97
== END 2024-07-12 22:04 | disposition left against medical advice (07) ==
LOC: ER 18:04
DX: I10 Essential (primary) hypertension (principal); Z53.21 Procedure and treatment not carried out due to patient leaving prior to being seen by health care provider

== ENCOUNTER 2024-11-12 15:19 | Emergency (ER) | payer MEDICARE, MEDICAID ==
[~2024-11-12] VITALS: Ht 180.3 cm; Wt 108.0 kg
[~2024-11-12 15:19] MED LIST changes: +ASPI-1497 PO; -BUPR2TAB SL; -CLON1TAB12 MT; +CLON1TAB23 MT; +COR6 PO; +DIGO125T80 PO; -TOPUD MT
[2024-11-12 15:25] VITALS: BP 125/104; PULSE 79; RESP 18; TEMP 98.2; O2SAT 100
== END 2024-11-12 16:57 | disposition left against medical advice (07) ==
LOC: ER 15:19
DX: R07.89 Other chest pain (principal); I11.0 Hypertensive heart disease with heart failure; I50.9 Heart failure, unspecified; Z79.899 Other long term (current) drug therapy; Z88.8 Allergy status to other drugs, medicaments and biological substances; Z88.6 Allergy status to analgesic agent; Z88.5 Allergy status to narcotic agent; Z98.890 Other specified postprocedural states
CPT/HCPCS: 71045; 93005; 99283